=== PATIENT | male | born 1955 | race Caucasian/White ===

== ENCOUNTER 2017-07-29 14:57 | Emergency (ER) | payer BC ==
[~2017-07-29] VITALS: Ht 180.3 cm; Wt 117.9 kg
[2017-07-29 15:45] VITALS: BP 180/90
== END 2017-07-29 17:31 | disposition home or self-care (01) ==
LOC: ER 14:57 → EDBD 14:57 → ER 17:31
DX: S80.02XA Contusion of left knee, initial encounter (principal); V43.52XA Car driver injured in collision with other type car in traffic accident, initial encounter; Y93.89 Activity, other specified; Y92.89 Other specified places as the place of occurrence of the external cause; Y99.8 Other external cause status
CPT/HCPCS: 73590